=== PATIENT | male | born 1990 | race Caucasian/White ===

== ENCOUNTER 2020-10-03 14:31 | Emergency (ER) | payer OTHER ==
[2020-10-03 14:38] VITALS: BP 135/84; PULSE 72; TEMP 98; BMI 25.6
== END 2020-10-03 16:00 | disposition home or self-care (01) ==
LOC: JERFT 14:31
DX: M25.511 Pain in right shoulder (principal)
CPT/HCPCS: 73030-TC-RT-FY; 99283-25

== ENCOUNTER 2021-10-10 20:53 | Emergency (ER) | payer OTHER ==
[2021-10-10 21:11] VITALS: BP 113/72; PULSE 79; BMI 25.8
[2021-10-10] MEDS ORDERED: ACETAMINOPHEN 325 MG TABLET (FP) PO ONE (22:26)
[2021-10-10] MEDS ORDERED: IBUPROFEN 600 MG TABLET (FP) PO ONE ×2 (22:26→22:28)
[2021-10-10] MEDS ORDERED: ACETAMINOPHEN 325 MG TABLET (FP) ONE (22:28)
== END 2021-10-10 22:45 | disposition home or self-care (01) ==
LOC: JERFT 20:53
DX: M79.644 Pain in right finger(s) (principal)
CPT/HCPCS: 73140-TC-RT-FY; 99283-25

== ENCOUNTER 2022-01-28 09:06 | Emergency (ER) | payer OTHER ==
[2022-01-28 09:18] VITALS: BP 134/89; PULSE 73; RESP 18; TEMP 98.2; BMI 25.8
[2022-01-28] MEDS ORDERED: IBUPROFEN 600 MG TABLET (FP) PO ONE ×2 (09:52→10:08)
== END 2022-01-28 11:00 | disposition home or self-care (01) ==
LOC: JERFT 09:06 → JER 09:06 → JERFT 11:00
DX: M25.511 Pain in right shoulder (principal)
CPT/HCPCS: 73030-TC-RT-FY; 99284-25

== ENCOUNTER 2023-11-14 11:21 | Emergency (ER) | payer OTHER ==
[2023-11-14 11:30] VITALS: BP 127/88; PULSE 87; RESP 19; TEMP 98; BMI 25.8
[2023-11-14] MEDS ORDERED: SULFAMETHOXAZOLE/TRIMETHOPRIM 800MG/160MG D.S. TABLET ONE (12:46)
[2023-11-14] MEDS ORDERED: BACITRACIN ZINC 15 GM TUBE TOPICAL OINTMENT ONE (12:46)
[2023-11-14] MEDS ORDERED: IBUPROFEN 400 MG TABLET (FP) PO ONE (12:47)
[2023-11-14] MEDS: SULFAMETHOXAZOLE/TRIMETHOPRIM 800MG/160MG D.S. TABLET PO ONE (12:50)
[2023-11-14] MEDS: IBUPROFEN 400 MG TABLET (FP) PO ONE (12:50)
[2023-11-14] MEDS: BACITRACIN ZINC 15 GM TUBE TOPICAL OINTMENT TP ONE (13:47)
== END 2023-11-14 12:51 | disposition home or self-care (01) ==
LOC: JER 11:21
PROC: 0H9RXZZ Drainage of Toe Nail, External Approach (ICD-10-PCS; principal; 2023-11-14)
DX: L03.032 Cellulitis of left toe (principal)
CPT/HCPCS: 99283-25